=== PATIENT | female | born 1945 | race Caucasian/White ===

== ENCOUNTER 2016-05-18 15:34 | Emergency (ER) | payer MEDICARE, BC ==
--- NOTE | ~2016-05-18 | EKG ---
PATIENT: LALITO MONTOYA UNIT #: [id number] Ventricular Rate: 75 BPM Atrial Rate: 75 BPM P-R Interval: 154 ms QRS Duration: 118 ms Q-T Interval: 408 ms QTC Calculation(Bezet): 455 ms P [place]anger: 39 degrees Calculated R [place]anger: 7 degrees Calculated T Sanger: 3 degrees Diagnosis Line: Normal sinus rhythm Diagnosis Line: Incomplete right bundle branch block Diagnosis Line: Borderline ECG Diagnosis Line: When compared with ECG of 24-MAY-2011 16:21, Diagnosis Line: Incomplete right bundle branch block is now Diagnosis Line: Present Diagnosis Line: T wave inversion now evident in Inferior leads Diagnosis Line: Confirmed by JERMAIN BARRON MD ([id number]) on 05/21/2016 Diagnosis Line: 10:46:48 PM INTERPRETING MD: BEATRICE BARROS
--- NOTE | ~2016-05-18 | CR72 ---
[facility] A Service [facility] RADIOLOGY TEXT RESULTS PATIENT: LALITO MONTOYA LOCATION: [facility] : 43 UNIT #: [id number] AGE: [address]: Osorio Barker MD SEX: F ORDER DR: [id number] [facility] [address] [place], [place] [address] [id number] E MR#: [id number] Acc #: [id number] NAME: LALITO MONTOYA. : 1945 SEX: F STUDY DATE/TIME: 05/18/2016 15:39 UNIT: [facility] ROOM: STUDY DESCRIPTION: CR Chest Single View Portable Attending Physician: Reed Braker M.D. Referring Physician: Eddie Horner M.D. Ordering Physician: Aidan Roach M.D. Primary Care Physician: Nishant Sarabia M.D. MEDICAL IMAGING REPORT This report is preliminary unless electronic signature is present EXAM Portable chest. DATE OF EXAM 05/18/2016 INDICATION Weakness, dizziness, shortness of air and lethargy for 4 days. History of hypertension. REPORT AP portable chest was obtained. COMPARISON No comparison. FINDINGS Cardiac and mediastinal contours are normal. The lungs are clear except for scattered granulomatous calcifications. There is no pneumothorax. IMPRESSION No active disease. Dictated by... Geovany Garcia Jr., M.D. THIS IS AN ELECTRONICALLY VERIFIED REPORT Geovany Garcia Jr., M.D. at 05/18/2016 9:29 PM CHEYANNE/sofya TD: 05/18/2016 20:40 [facility] A Service [facility] RADIOLOGY TEXT RESULTS PATIENT: LALITO MONTOYA LOCATION: [facility] : 43 UNIT #: [id number] AGE: [address]: Osorio Barker MD SEX: F ORDER DR: JOB #: [id number] MEDICAL IMAGING REPORT Page 1 of 1 COPY
[~2016-05-18 15:34] MED LIST: AMLODIPINE BESYL5 MG PO; ANTIVERT PO; APPEAREX2500 MC1 PO; AUGMENTIN875 MG PO; BAYER ASPIRIN325 M1 PO; CALCIUM 600+D T1 TA1 PO; CALCIUM PO; CARVEDILOL3.125 MG PO; CELEBREX PO; COREG3.125 MG PO; COZAAR100 MG PO; DITROPAN5 MG PO; HYZAAR PO; KLONOPIN0.5 MG PO; LOPID600 MG PO; MEDI-MECLIZINE25 M1 PO; MEDROL4 MG/DOSE- PO; MELOXICAM15 MG PO; PANTOPRAZOLE SO40 MG PO; PERCOCET5/325 PO; PROTONIX PO; SIMVASTATIN20 MG PO; TASPRIN325 MG PO; VITAMIN D1000 UNI1 PO; VITAMIN D400 UNI1 PO
[2016-05-18 15:56] LABS: BASOPHIL% 0.4 % (0-2.5); EOSINOPHIL# 0.5 X10e3 (0-0.7); EOSINOPHIL% 5.1 % (0.0-7.0); HEMATOCRIT 37.3 % (35.0-45.0); HEMOGLOBIN 13.3 gm/dL (12.0-16.0); LYMPHOCYTE# 1.5 X10e3 (1.0-3.5); LYMPHOCYTE% 14.8 % (17.0-45.0); MEAN CELL VOLUME 80.6 FL (83-96); MEAN CORPUSCULAR HEMOGLOBIN 28.6 PG (28-34); MEAN CORPUSCULAR HGB CONC 35.5 g/dL (30-36); MEAN PLATELET VOLUME 9.8 FL (6.5-11.5); MONOCYTE% 10.3 % (3.0-12.0); NEUTROPHIL# 6.8 X10e3 (1.5-7.1); NEUTROPHIL% 69.4 % (40-75); PLATELET COUNT 178 X10e3 (140-420); RED BLOOD COUNT 4.63 X10e (3.90-5.30); RED CELL DISTRIBUTION WIDTH 16.5 % (11.0-15.5); WHITE BLOOD COUNT 9.9 X10e3 (4.0-10.5)
[2016-05-18 15:58] LABS: POC - CKMB <1.0 ng/mL (0.0-7.9); POC - TROPONIN <0.05 ng/mL (<=0.05)
[2016-05-18 15:58] LABS: DIFF IND NO
[2016-05-18 16:03] LABS: INFLUENZA A NEG (NEG); INFLUENZA B NEG (NEG)
[2016-05-18 16:20] LABS: ALBUMIN SERUM 4.1 g/dL (3.5-5.0); BILIRUBIN, DIRECT 0.2 mg/dL (0.0-0.2); BILIRUBIN,INDIRECT 0.8 mg/dL (0.0-0.9); BUN/CREATININE RATIO 22.72; CALCIUM SERUM 9.5 mg/dL (8.4-10.2); CREATININE SERUM 1.1 mg/dL (0.6-1.4); GLOM FILT RATE Estimated 50.5 mL/min (>60); POTASSIUM 3.3 mmol/L (3.5-5.1); PROTEIN TOTAL SERUM 7.4 g/dL (6.0-8.3)
[2016-05-18 16:45] LABS: URINE SOURCE CLEAN CATCH
[2016-05-18 16:53] LABS: URINE APPEARANCE CLOUDY; URINE BILIRUBIN NEG (NEG); URINE BLOOD NEG (NEG); URINE COLOR DK YELLOW; URINE GLUCOSE NEG (NEG); URINE KETONE TRACE (NEG); URINE LEUKOCYTE ESTERASE 1+ (NEG); URINE NITRATE POS (NEG); URINE PROTEIN TRACE (NEG); URINE SPECIFIC GRAVITY 1.028 (1.003-1.035)
[2016-05-18 16:54] LABS: CULTURE INDICATED? YES; URINE BACTERIA AUWI 3+ (NEGATIVE); URINE SQUAMOUS EPITHELIAL CELL MOD /[HPF]
[2016-05-18 17:04] LABS: URINE GRANULAR CAST 0-2 /[HPF]
[2016-05-18 17:05] LABS: URINE MUCUS PRESENT
== END 2016-05-18 17:54 | disposition home or self-care (01) ==
LOC: CED 15:34
PROVIDERS: Emergency Medicine
DX: R53.1 Weakness (principal); N39.0 Urinary tract infection, site not specified; E11.9 Type 2 diabetes mellitus without complications; I10 Essential (primary) hypertension; K21.9 Gastro-esophageal reflux disease without esophagitis; Z87.891 Personal history of nicotine dependence
CPT/HCPCS: 36415; 71010; 80048; 80076; 81003; 82553; 84443; 84484; 85025; 87086; 87088; 87186; 87804; 93005; 99283

== ENCOUNTER 2016-05-28 17:13 | Emergency (ER) | payer MEDICARE, BC ==
--- NOTE | ~2016-05-28 | CR72 ---
[facility] A Service of [facility] RADIOLOGY TEXT RESULTS PATIENT: LALITO MONTOYA LOCATION: [facility] : 43 UNIT #: [id number] AGE: [address]: Du Hansen MD SEX: F ORDER DR: [id number] [facility] [address] [place], [place] [address] [id number] E MR#: [id number] Acc #: [id number] NAME: LALITO MONTOYA : 1945 SEX: F STUDY DATE/TIME: 05/28/2016 17:18 UNIT: [facility] ROOM: STUDY DESCRIPTION: CR Chest Single View Portable Attending Physician: Du Hansen M.D. Ordering Physician: Ed Doctor [id number] [facility] Primary Care Physician: Nishant Sarabia M.D. MEDICAL IMAGING REPORT This report is preliminary unless electronic signature is present EXAM Portable chest HISTORY Weakness and cough for 3 weeks. FINDINGS The cardiac size and pulmonary vascularity are normal. No infiltrates or effusions. Mildly tortuous descending thoracic aorta. Small calcified hilar nodes. IMPRESSION No acute findings. No active disease. Dictated by... Duncan Samayoa M.D. THIS IS AN ELECTRONICALLY VERIFIED REPORT Duncan Samayoa M.D. at 05/28/2016 10:36 PM Juani TD: 05/28/2016 20:58 JOB #: [id number] MEDICAL IMAGING REPORT Page 1 of 1 COPY
--- NOTE | ~2016-05-28 | EKG ---
PATIENT: LALITO MONTOYA UNIT #: [id number] Ventricular Rate: 65 BPM Atrial Rate: 65 BPM P-R Interval: 162 ms QRS Duration: 126 ms Q-T Interval: 416 ms QTC Calculation(Bezet): 432 ms P [place]: 31 degrees Calculated R [place]: 7 degrees Calculated T [place]: 9 degrees Diagnosis Line: Normal sinus rhythm Diagnosis Line: Right bundle branch block Diagnosis Line: Abnormal ECG Diagnosis Line: When compared with ECG of 18-MAY-2016 15:23, Diagnosis Line: No significant change was found Diagnosis Line: Confirmed by ANDREAS MURPHY MD ([id number]) on 05/29/2016 Diagnosis Line: 11:19:31 PM INTERPRETING MD: KATHERINE BARROS
[2016-05-28 16:30] LABS: BASOPHIL# 0.1 X10e3 (0-0.3); BASOPHIL% 0.7 % (0-2.5); EOSINOPHIL# 0.3 X10e3 (0-0.7); EOSINOPHIL% 3.3 % (0.0-7.0); HEMATOCRIT 35.7 % (35.0-45.0); HEMOGLOBIN 12.6 gm/dL (12.0-16.0); LYMPHOCYTE% 29.9 % (17.0-45.0); MEAN CELL VOLUME 80.2 FL (83-96); MEAN CORPUSCULAR HEMOGLOBIN 28.3 PG (28-34); MEAN CORPUSCULAR HGB CONC 35.2 g/dL (30-36); MEAN PLATELET VOLUME 9.7 FL (6.5-11.5); MONOCYTE# 0.5 X10e3 (0-1.0); MONOCYTE% 5.4 % (3.0-12.0); NEUTROPHIL# 6.1 X10e3 (1.5-7.1); NEUTROPHIL% 60.7 % (40-75); PLATELET COUNT 204 X10e3 (140-420); RED BLOOD COUNT 4.45 X10e (3.90-5.30); RED CELL DISTRIBUTION WIDTH 16.2 % (11.0-15.5); WHITE BLOOD COUNT 10.1 X10e3 (4.0-10.5)
[2016-05-28 16:32] LABS: DIFF IND NO
[2016-05-28 16:46] LABS: URINE SOURCE CLEAN CATCH
[2016-05-28 16:52] LABS: URINE APPEARANCE CLEAR; URINE BILIRUBIN NEG (NEG); URINE BLOOD NEG (NEG); URINE COLOR YELLOW; URINE GLUCOSE NEG (NEG); URINE KETONE NEG (NEG); URINE LEUKOCYTE ESTERASE NEG (NEG); URINE NITRATE NEG (NEG); URINE PROTEIN NEG (NEG); URINE SPECIFIC GRAVITY 1.015 (1.003-1.035); URINE UROBILINOGEN 0.2 MG/DL (NEG)
[2016-05-28 16:54] LABS: POC - CKMB <1.0 ng/mL (0.0-7.9); POC - TROPONIN <0.05 ng/mL (<=0.05)
[2016-05-28 16:59] LABS: CULTURE INDICATED? NO
[2016-05-28 17:02] LABS: ALBUMIN SERUM 4.1 g/dL (3.5-5.0); BILIRUBIN, DIRECT 0.1 mg/dL (0.0-0.2); BILIRUBIN,INDIRECT 0.8 mg/dL (0.0-0.9); BILIRUBIN,TOTAL 0.9 mg/dL (0.2-2.0); BUN/CREATININE RATIO 24.28; CALCIUM SERUM 9.5 mg/dL (8.4-10.2); CREATININE SERUM 0.7 mg/dL (0.6-1.4); GLOM FILT RATE Estimated 87.2 mL/min (>60); POTASSIUM 3.6 mmol/L (3.5-5.1); PROTEIN TOTAL SERUM 7.4 g/dL (6.0-8.3)
[2016-05-28 18:14] LABS: POC - CKMB <1.0 ng/mL (0.0-7.9); POC - TROPONIN <0.05 ng/mL (<=0.05)
[2016-05-28 19:16] LABS: THYROID STIMULATING HORMONE 0.74 uIU/ml (0.34-5.60)
[2016-05-28 19:21] LABS: FREE T3 3.3 pg/mL (2.5-3.9)
== END 2016-05-28 21:04 | disposition home or self-care (01) ==
LOC: CED 17:13
PROVIDERS: Emergency Medicine
DX: R53.83 Other fatigue (principal); I10 Essential (primary) hypertension; K21.9 Gastro-esophageal reflux disease without esophagitis; Z90.710 Acquired absence of both cervix and uterus; Z98.890 Other specified postprocedural states
CPT/HCPCS: 36415; 71010; 80048; 80076; 81003; 82553; 84443; 84481; 84484; 85025; 93005; 99283